=== PATIENT | male | born 1975 | race African-American/Black ===

== ENCOUNTER 2016-09-12 09:12 | Emergency (ER) | payer OTHER ==
[~2016-09-12] VITALS: Ht 167.6 cm; Wt 76.2 kg
[2016-09-12 09:15] VITALS: TEMP 98.4
[2016-09-12 09:47] LABS: PLATELET COUNT 212 K/uL (142-355)
[2016-09-12 10:12] LABS: POTASSIUM 3.5 mmol/L (3.6-5.2); SODIUM 138 mmol/L (136-145)
[2016-09-12 10:15] VITALS: BP 138/70
== END 2016-09-12 10:30 | disposition home or self-care (01) ==
LOC: ED 09:12
DX: S39.011A Strain of muscle, fascia and tendon of abdomen, initial encounter (principal)
CPT/HCPCS: 80053; 81000; 85027; 86318; 99283